=== PATIENT | female | born 1980 | race Caucasian/White ===

== ENCOUNTER 2017-11-12 08:53 | Day surgery (SDC) | payer SELFPAY ==
[~2017-11-12] VITALS: Ht 165.1 cm; Wt 78.2 kg
[2017-11-12] VITALS (8 sets, daily range): BP systolic 96–140; BP diastolic 57–97; PULSE 87–98; RESP 16–20; TEMP 97.9–98.5; O2SAT 93–97
[2017-11-12] MEDS ORDERED: ZOLO25TA PO (09:24)
[2017-11-12] MEDS ORDERED: [UNRECOGNIZED DRUG - CODE] SL (09:24)
[2017-11-12] MEDS ORDERED: VITA100018 PO (09:24)
[2017-11-12] MEDS ORDERED: SODIUM CHLOR 0.9% 1000 ML IV SCH (09:45)
[2017-11-12 10:30] LABS: INTERNATIONAL NORMALIZED RATIO 0.9 RATIO; PROTHROMBIN TIME - PATIENT 9.3 SEC (9.8-11.6)
[2017-11-12 10:33] LABS: AUTOMATED NEUTROPHIL # 7.4 TH/MM3 (1.8-7.7); BASOPHIL # 0.1 TH/MM3 (0-0.2); BASOPHIL % 0.9 % (0.0-2.0); EOSINOPHIL # 0.2 TH/MM3 (0-0.4); EOSINOPHIL % 1.9 % (0.0-4.0); HEMATOCRIT 46.1 % (35.0-46.0); HEMOGLOBIN 15.8 GM/DL (11.6-15.3); LYMPH % 20.9 % (9.0-44.0); LYMPHOCYTE # 2.3 TH/MM3 (1.0-4.8); MEAN CELL VOLUME 87.6 FL (80.0-100.0); MEAN CORPUSCULAR HGB CONC 34.3 % (32.0-36.0); MEAN PLATELET VOLUME 9.6 FL (7.0-11.0); MONO % 8.2 % (0.0-8.0); MONOCYTE # 0.9 TH/MM3 (0-0.9); NEUT % 68.1 % (16.0-70.0); PLATELET COUNT 341 TH/MM3 (150-450); RED BLOOD COUNT 5.27 MIL/MM3 (4.00-5.30); WHITE BLOOD COUNT 10.8 TH/MM3 (4.0-11.0)
[2017-11-12] MEDS ORDERED: MIDAZOLAM HCL 2 MG/2 ML VIAL ONE (10:59)
[2017-11-12] MEDS ORDERED: THROMBIN (TOPICAL) 5,000 UNIT VIAL ONE (11:19)
--- NOTE | 2017-11-12 12:34 | RADRPT ---
EXAM DATE: 11/12/2017 12:04 PM EDT AGE/SEX: 37 years / Female INDICATIONS: Liver mass. CLINICAL DATA: This is the patient's initial encounter. Patient reports that signs and symptoms have been present for 1 day and indicates a pain score of 0/10. MEDICAL/SURGICAL HISTORY: Diabetes. None. COMPARISON: No prior exams available for comparison. BIOPSY SITE: . liver MEDICATION(S): 4MG midazolam (Versed) IV 200MCG fentanyl (Sublimaze) IV DEVICE(S): 18 gauge BARD biopsy needle Two core specimen(s) sent to the laboratory for pathologic evaluation. . . PROCEDURE: CT guided . liver biopsy Prior to the procedure informed consent was obtained. Any appropriate prior imaging studies were rev iewed. Using automated exposure control and adjustment of the mA and/or kV according to patient size, radiat ion dose was kept as low as reasonably achievable to obtain optimal diagnostic quality images. DICOM format image data is available electronically for review and comparison. The site was prepped in a sterile fashion. Full sterile technique was used, including cap, mask, lou rile gloves and gown and a large sterile sheet. Hand hygiene and 2% chlorhexidine and/or betadine/al cohol prep was utilized per protocol for cutaneous antisepsis. The skin and subcutaneous tissues wer e infiltrated with local anesthetic solution. Under CT guidance a 17-gauge guide needle was placed down to within 5 mm of the mass in the right lob e of the liver. 2 18-gauge cores were obtained 1 extending from normal liver to mass and the second in the center of the mass. Tract was embolized gently with Gelfoam and thrombin. Follow-up CT scan reveals no hemorrhage. The patient tolerated the procedure well and there were no complications. The patient was returned to the Radiology Outpatient Unit in stable condition. CONCLUSION: 1. Uncomplicated CT guided biopsy one of the multiple masses in the liver. 2. There is no hemorrhage. Electronically signed by: Alok Menon MD 11/12/2017 12:32 PM EDT
[2017-11-12] MEDS ORDERED: ONDANSETRON ODT 4 MG TAB ONE (15:17)
== END 2017-11-12 16:15 | disposition home or self-care (01) ==
LOC: HRAD 08:53 → HRIP 08:59 → HRAD 16:15
PROVIDERS: ATTEND Internal Medicine Hematology
DX: K76.89 Other specified diseases of liver (principal)
CPT/HCPCS: 47000; 77012; 85025; 85610; 85730; 88307; 88313; 99152; 99153; J2250; J3010; J7030; 88341